=== PATIENT | male | born 1945 | race Two or more races ===

== ENCOUNTER → 2024-07-03 | Outpatient (CLI) | payer MEDICARE ==
[2024-07-03 15:15] LABS: Basophils # (A) 0.04 X 10*3/uL (0.00-0.10); Basophils % (A) 0.9 %; Eosinophils % (A) 2.2 %; HCT 41.9 % (39.6-50.0); HGB 14.4 g/dL (13.0-17.0); Lymphocytes % (A) 21.5 %; MCH 29.4 pg (27.0-32.0); MCHC 34.4 g/dL (32.0-37.0); MCV 85.5 FL (80.0-97.0); Mean Platelet Volume 9.2 FL (9.5-12.2); Monocytes # (A) 0.47 X 10*3/uL (0.20-1.00); Monocytes % (A) 10.1 %; NRBC Per 100 WBC 0 X 10*3/uL (0.00-0.01); Neutrophils # (A) 3.03 X 10*3/uL (1.80-7.70); Neutrophils % (A) 65.1 %; Platelet Count 182 X 10*3/uL (140-440); RDW 12.7 % (11.5-14.5); WBC 4.65 X 10*3/uL (4.50-10.00)
[2024-07-03 15:28] LABS: Blood Urea Nitrogen 17.1 mg/dL (9.0-27.0); Glucose 88 mg/dL (70-110)
[2024-07-03 15:29] LABS: ALT 18 U/L (10-49); AST 24 U/L (14-35); Albumin 4.5 g/dL (3.8-4.9); Albumin/Globulin Ratio 2.05 Ratio (1.60-3.17); Alkaline Phosphatase 74 U/L (41-126); Calcium 9.9 mg/dL (8.7-10.3); Carbon Dioxide 25.9 mmol/L (21.6-31.8); Chloride 104 mmol/L (96-109); Globulin 2.2 g/dL (1.6-3.3); Potassium 4.1 mmol/L (3.5-5.5); Prostate Specific Antigen 0.22 ng/mL (0.000-6.500); Sodium 141 mmol/L (135-145); Total Bilirubin 0.9 mg/dL (0.3-1.2); Total Protein 6.7 g/dL (6.2-8.2)
== END | disposition home or self-care (01) ==
LOC: LABWHC1 11:12
PROVIDERS: ATTEND Internal Medicine Hematology & Oncology
DX: C61 Malignant neoplasm of prostate (principal); C18.2 Malignant neoplasm of ascending colon; D50.8 Other iron deficiency anemias
CPT/HCPCS: 36415; 80053; 82378; 84153; 84403; 85025